=== PATIENT | female | born 1960 | race Caucasian/White ===

== ENCOUNTER 2016-11-03 21:31 | Emergency (ER) | payer MEDICAID ==
[~2016-11-03] VITALS: Ht 170.2 cm; Wt 61.4 kg
[2016-11-04 00:48] VITALS: BP 122/81
== END 2016-11-04 00:50 | disposition home or self-care (01) ==
LOC: EMS 21:33
DX: S50.02XA Contusion of left elbow, initial encounter (principal); W22.8XXA Striking against or struck by other objects, initial encounter; Y93.89 Activity, other specified; Y92.89 Other specified places as the place of occurrence of the external cause; Y99.8 Other external cause status
CPT/HCPCS: 99284

== ENCOUNTER 2021-03-27 15:05 | Emergency (ER) | payer MEDICAID, OTHER ==
[~2021-03-27] VITALS: Ht 170.2 cm; Wt 73.0 kg
[2021-03-27 17:44] VITALS: BP 128/69
== END 2021-03-27 17:50 | disposition home or self-care (01) ==
LOC: EMS 15:15
DX: K42.9 Umbilical hernia without obstruction or gangrene (principal)
CPT/HCPCS: 99281; Z7502

== ENCOUNTER 2021-06-06 13:40 | Emergency (ER) | payer OTHER ==
[~2021-06-06] VITALS: Ht 170.2 cm; Wt 70.5 kg
[2021-06-06] MEDS ORDERED: KETOROLAC TROMETHAMINE 10 MG TABLET PO ONE (16:00)
[2021-06-06 16:05] VITALS: BP 120/80
== END 2021-06-06 16:12 | disposition home or self-care (01) ==
LOC: EMS 13:45
DX: S70.01XA Contusion of right hip, initial encounter (principal); W18.39XA Other fall on same level, initial encounter; Y93.89 Activity, other specified; Y92.89 Other specified places as the place of occurrence of the external cause; Y99.8 Other external cause status; F17.210 Nicotine dependence, cigarettes, uncomplicated
CPT/HCPCS: 73502; 99283

== ENCOUNTER 2022-03-14 05:31 | Emergency (ER) | payer OTHER ==
[~2022-03-14] VITALS: Ht 170.2 cm; Wt 68.2 kg
[2022-03-14 06:17] VITALS: BP 129/77
[2022-03-14] MEDS ORDERED: LIDOCAINE/PF 1% 5 ML VIAL ID ONE (06:45)
== END 2022-03-14 06:59 | disposition home or self-care (01) ==
LOC: EMS 05:32
DX: S61.242A Puncture wound with foreign body of right middle finger without damage to nail, initial encounter (principal); F17.210 Nicotine dependence, cigarettes, uncomplicated; Z98.890 Other specified postprocedural states; X58.XXXA Exposure to other specified factors, initial encounter; Y93.89 Activity, other specified; Y92.89 Other specified places as the place of occurrence of the external cause; Y99.8 Other external cause status
CPT/HCPCS: 64450; 99284; J2001

== ENCOUNTER 2022-03-22 17:59 | Emergency (ER) | payer OTHER ==
[~2022-03-22] VITALS: Ht 170.2 cm; Wt 67.2 kg
[2022-03-22 18:13] VITALS: BP 111/59
== END 2022-03-22 21:41 | disposition left against medical advice (07) ==
LOC: EMS 17:59
DX: Z53.21 Procedure and treatment not carried out due to patient leaving prior to being seen by health care provider (principal)

== ENCOUNTER 2024-06-04 21:40 | Emergency (ER) | payer MEDICARE, MEDICAID ==
[~2024-06-04] VITALS: Ht 170.2 cm; Wt 72.7 kg
[2024-06-04 21:54] VITALS: BP 130/79; PULSE 80; RESP 16; TEMP 98; O2SAT 100
== END 2024-06-05 00:14 | disposition left against medical advice (07) ==
LOC: EMS 21:40
DX: K08.89 Other specified disorders of teeth and supporting structures (principal); Z53.21 Procedure and treatment not carried out due to patient leaving prior to being seen by health care provider